=== PATIENT | female | born 1995 | race Caucasian/White ===

== ENCOUNTER → 2021-01-10 09:46 | Outpatient (BNVA) | payer SELFPAY | PROVIDERS: Visit Provider Nurse Practitioner Family | DX: Z20.822 Contact with and (suspected) exposure to COVID-19 (principal); J06.9 Acute upper respiratory infection, unspecified | CPT/HCPCS: 87426 ==

== ENCOUNTER → 2021-08-28 09:29 | Outpatient (BNVA) | payer OTHER, SELFPAY | PROVIDERS: Visit Provider Nurse Practitioner Women's Health | DX: N92.6 Irregular menstruation, unspecified (principal) | CPT/HCPCS: 81025; 84702 ==

== ENCOUNTER → 2021-09-11 15:09 | Outpatient (BNVA) | payer OTHER, SELFPAY | PROVIDERS: Visit Provider Obstetrics & Gynecology | DX: Z36.87 Encounter for antenatal screening for uncertain dates (principal) | CPT/HCPCS: 76801 ==

== ENCOUNTER 2021-09-20 10:04 | Emergency (ER) | payer OTHER, SELFPAY ==
[2021-09-20 10:15] VITALS: BP 108/73; PULSE 94; RESP 16; TEMP 37.2; O2SAT 98; BMI 23.9
--- NOTE | 2021-09-20 10:20 | US_ITS ---
WS: [id number] EARLY OBSTETRICAL ULTRASOUND (<14 WEEKS). HISTORY: 10 weeks , spotting and cramping COMPARISON: 09/11/2021 Single intrauterine gestational sac is identified. Cardiac activity at 171 BPM. [place]-rump length ruddy sures 3.2 cm which corresponds to a gestation of 10w1d. Normal-appearing yolk sac and amnion demonstr ated. Small subchorionic hemorrhage. Subchorionic hemorrhage is noted along the superior gestational sac. Hemorrhage measures 1.9 x 2.4 x 0.5 cm. No free fluid. Normal size ovaries with no mass. Normal appearance of the cervix. Cervix is closed at 4.2 cm in length. US/US OB <= 14 weeks fetus [id number] IMPRESSION: 1. Single intrauterine gestation of 10 weeks 1 day with an EDC of 04/17/2022. A ppropriate growth since the prior ultrasound. 2. Very small subchorionic hemorrhage. 3. Normal cardiac activity. 4. Normal cervix.
--- NOTE | 2021-09-20 10:26 | ED_ITS ---
Documented by User: TRINA Junior 09/20/21 12:56 HPI - General: Chief complaint: Vaginal Bleeding Stated complaint: 10 wks preg, spotting; cramps Time Seen by Provider: 09/20/21 10:19 History of Present Illness: Patient is a G3, P2 26-year-old female and is currently 10 weeks and is having some cramping and spotting. Symptoms started on Thursday. She describes the cramping as very mild and has not taken any Tylenol for the pain. On Thursday the spotting was very light and she described it as pink in color. Her spotting then went away after a day and then yesterday she started having spotting again. She denies any heavy bleeding and describes her bleeding as pink spotting. She is not bleeding through any pads. She contacted her OB doctor today and they sent her here to the ED to get an ultrasound. Associated symptoms: Deny abdominal pain, dysuria, headache(s), nausea or vomiting Review of Systems Const: Denies: fever(s), chills or fatigue Eyes: Denies: change in vision or eye discomfort ENMT: Denies: throat pain, odynophagia, nasal discharge or nasal congestion Card: Denies: chest pain, palpitations, edema, swelling of feet/ankles, dyspnea on exertion or orthopnea Resp: Denies: dyspnea, productive cough or non-productive cough GI: Denies: abdominal pain, nausea, vomiting, diarrhea, constipation or hematochezia : Reports: vaginal bleeding and pelvic pain (Mild cramping); Denies: flank pain, dysuria or hematuria Musc: Denies: neck pain, back pain or extremity swelling Skin/Breast: Denies: rash or new lesions Neuro: Denies: headache(s), numbness in extremities or weakness in extremities PFSH ED PFSH: Medical History No pertinent past medical history neghx: htn,dm,thyroid,dvt/pe PCP: None Surgical History No pertinent past surgical history Family History Mother Hypertension Breast cancer dx age 50's-- BRCA positive but unsure Denies family history of Colon cancer Ovarian cancer Diabetes Heart disease Hypercholesteremia Uterine cancer Thyroid disease Stroke Physical Exam Const: COMMON NORMALS: no acute distress, patient oriented x3, healthy appearing and alert GENERAL APPEARANCE: cooperative and comfortable HENMT: COMMON NORMALS: normocephalic HEAD & SCALP: normocephalic MOUTH: Normal oral and palatal mucosa present THROAT: posterior oropharynx normal and uvula midline Neck/C-Spine: COMMON NORMALS: supple GENERAL: Yes normal visual inspection Resp: COMMON NORMALS: normal respiratory effort, No retractions, No use of accessory muscles and clear to auscultation bilaterally AUSCULTATION: clear to auscultation bilaterally Cardio: COMMON NORMALS: regular rate, regular rhythm, S1 normal heart sound present, S2 normal heart sound present, No gallops present (Cardio), No clicks present (Cardio), No murmurs present (Cardio) and Peripheral pulses 2+ throughout RATE: regular rate RHYTHM: regular rhythm HEART SOUNDS: S1 normal heart sound present and S2 normal heart sound present PERIPHERAL PULSES: Peripheral pulses 2+ throughout GI: COMMON NORMALS: Normal to inspection, nondistended, normoactive bowel sounds present, Soft to palpation, non-tender and no masses PALPATION: Yes Soft to palpation : COMMON NORMALS: Yes no CVA tenderness BLADDER/KIDNEY EXAM: Yes no CVA tenderness Back/Pelvis: COMMON NORMALS: no CVA tenderness Extremity: COMMON NORMALS: normal to inspection and no pedal edema Neuro: COMMON NORMALS: patient oriented x3 and moves all extremities SENSORIUM/ORIENTATION: Yes alert Skin: GENERAL SKIN EXAM: dry skin Course Vital Signs: Vital signs: Vital Signs Temperature 99 F 09/20/21 10:15 Pulse Rate 94 09/20/21 10:15 Respiratory Rate 16 09/20/21 10:15 Blood Pressure 108/73 09/20/21 10:15 Pulse Oximetry 98 09/20/21 10:15 MDM - OB/Uterine Contractions Medical Decision Making Patient is a 26-year-old female that is 10 weeks that comes to the ED with some light spotting and mild cramping. Patient was sent over here by her OB to get an ultrasound. Patient denies any heavy bleeding and has not bleeding through any pads. Vitals are stable. Labs are all unremarkable hCG beta quant is 93,212. Ultrasound showed a single intrauterine at about 10 weeks gestation there was a very small subchorionic hemorrhage noted but other than that everything looked normal. Patient was stable for discharge home and I told her to contact her OB to let her know about ultrasound results. She has diagnosed subchorionic hemorrhage in first trimester. Return to ED precautions given. Follow-up with OB. Patient understood and agreed with plan. Lab Data I reviewed the patient's lab results. : 09/20/21 10:30 09/20/21 10:30 Radiology Impressions Ultrasound 09/20/21 10:20 IMPRESSION: 1. Single intrauterine gestation of 10 weeks 1 day with an EDC of 04/17/2022. Appropriate growth since the prior ultrasound. 2. Very small subchorionic hemorrhage. 3. Normal cardiac activity. 4. Normal cervix. Laboratory Results WBC 10.1 10^3/uL (4.0-10.0) H 09/20/21 10:30 RBC 4.07 10^6/uL (4.1-5.3) L 09/20/21 10:30 Hgb 12.8 g/dL (11.5-15.3) 09/20/21 10:30 Hct 36.0 % (37.0-47.0) L 09/20/21 10:30 MCV 88.5 fl (81-99) 09/20/21 10:30 MCH 31.4 pg (28.0-34.0) 09/20/21 10:30 MCHC 35.6 g/dL (30.0-36.0) 09/20/21 10:30 RDW 12.0 % (12.1-15.1) L 09/20/21 10:30 Plt Count 230 10^3/cmm (130-400) 09/20/21 10:30 MPV 11.1 fL (7.4-10.4) H 09/20/21 10:30 Neut % (Auto) 73.9 % 09/20/21 10:30 Lymph % (Auto) 15.6 % 09/20/21 10:30 [place] % (Auto) 9.0 % 09/20/21 10:30 Eos % (Auto) 0.9 % 09/20/21 10:30 Baso % (Auto) 0.2 % 09/20/21 10:30 Neut # (Auto) 7.50 10^3/uL (1.8-7.7) 09/20/21 10:30 Lymph # (Auto) 1.6 10^3/uL (0.8-4.8) 09/20/21 10:30 [place] # (Auto) 0.9 10^3/uL (0.2-0.9) 09/20/21 10:30 Eos # (Auto) 0.1 10^3/uL (0.0-0.8) 09/20/21 10:30 Baso # (Auto) 0.0 10^3/uL (0.0-0.1) 09/20/21 10:30 Nucleated RBC % (auto) 0 % 09/20/21 10:30 Nucleated RBCs # 0.0 /100WBC 09/20/21 10:30 Sodium 134 mmol/L (136-145) L 09/20/21 10:30 Potassium 3.6 mmol/L (3.5-5.1) 09/20/21 10:30 Chloride 101 mmol/L (98-107) 09/20/21 10:30 Carbon Dioxide 22 mmol/L (22-29) 09/20/21 10:30 Anion Gap 14.6 (5-19) 09/20/21 10:30 BUN 4 mg/dL (6-20) L 09/20/21 10:30 Creatinine 0.3 mg/dL (0.5-0.9) L 09/20/21 10:30 GFR Calculation 264.9 mL/min (90-130) H 09/20/21 10:30 Glucose 84 mg/dL (65-115) 09/20/21 10:30 Calculated Osmolality 274 mOsm/kg (285-295) L 09/20/21 10:30 Calcium 9.0 mg/dL (8.5-10.5) 09/20/21 10:30 Total Bilirubin 0.2 mg/dL (0.15-1.2) 09/20/21 10:30 AST 23 U/L (0-32) 09/20/21 10:30 ALT 54 U/L (0-33) H 09/20/21 10:30 Alkaline Phosphatase 40 IU/L (35-105) 09/20/21 10:30 Total Protein 7.8 g/dL (6.6-8.7) 09/20/21 10:30 Albumin 4.1 g/dL (3.5-5.2) 09/20/21 10:30 Globulin 3.7 g/dL (1.3-4.6) 09/20/21 10:30 Ser , Semi-Qnt 77600.00 mIU/mL 09/20/21 10:30 Urine Color Yellow (Yellow) 09/20/21 10:30 Urine Appearance Clear (CLEAR) 09/20/21 10:30 Urine pH 6.5 (5-7) 09/20/21 10:30 Ur Specific [place] 1.015 (1.005-1.030) 09/20/21 10:30 Urine Protein Neg (Negative) 09/20/21 10:30 Urine Glucose (UA) Norm (Normal) 09/20/21 10:30 Urine Ketones Negative (Negative) 09/20/21 10:30 Urine Blood Neg (Negative) 09/20/21 10:30 Urine Nitrate Negative (Negative) 09/20/21 10:30 Urine Bilirubin Neg (Negative) 09/20/21 10:30 Urine Urobilinogen Norm mg/dL (Negative) 09/20/21 10:30 Ur Leukocyte Esterase Negative (Negative) 09/20/21 10:30 Blood Type O Positive 09/20/21 10:30 Rho(D) Type Positive 09/20/21 10:30 Discharge Plan Discharge Patient Disposition: Home Clinical Impression: Subchorionic hemorrhage in first trimester Qualifiers: Fetus number: single or unspecified fetus Qualified Code(s): O41.8X10 - Other specified disorders of amniotic fluid and membranes, first trimester, not applicable or unspecified Condition: Stable Prescriptions: No Action No Known Home Medications 0RF Discharge Orders: Discharge ED (Routine); Ordered 09/20/21 Ordered By: Gerry Gurrola Discharge Diet: Regular Discharge Activity: Increase activity as tolerated Patient Instructions: (ED), Subchorionic Hemorrhage (ED) Activity Restrictions/Additional Instructions: Contact OB office later today to let them know about your ED visit and ultrasound results. Return to the ER or your medical provider if condition worsens. Please read and understand discharge instructions. Thank you for choosing [facility] for your healthcare needs today. Please realize this is an emergency room and that we are providing you with a medical screening exam and this may not be complete and all inclusive of all the testing and or work up that you may need to determine your ailment or severity of your illness. It is very important that you follow up as instructed or that you return to the Emergency Department should you have concerns or if your condition changes or worsens in any way. Coding Level of Care Code ED Wood Car Builder for Chg Fwd Exam Comprehensive Documented by User: Rolan Hollis DO 09/23/21 09:58 HPI - General: Chief complaint: Vaginal Bleeding Stated complaint: 10 wks preg, spotting; cramps Time Seen by Provider: 09/20/21 10:19 [facility] ED PFSH: Medical History No pertinent past medical history neghx: htn,dm,thyroid,dvt/pe PCP: None Surgical History No pertinent past surgical history Family History Mother Hypertension Breast cancer dx age 50's-- BRCA positive but unsure Denies family history of Colon cancer Ovarian cancer Diabetes Heart disease Hypercholesteremia Uterine cancer Thyroid disease Stroke Course Vital Signs: Vital signs: Vital Signs Temperature 99 F 09/20/21 10:15 Pulse Rate 94 09/20/21 10:15 Respiratory Rate 16 09/20/21 10:15 Blood Pressure 108/73 09/20/21 10:15 Pulse Oximetry 98 09/20/21 10:15 MDM - OB/Uterine Contractions Medical Decision Making Patient is a 26-year-old female that is 10 weeks that comes to the ED w ith some light spotting and mild cramping. Patient was sent over here by her OB to get an ultrasound. Patient denies any heavy bleeding and has not bleeding through any pads. Vitals are stable. Labs are all unremarkable hCG beta quant is 93,212. Ultrasound showed a single intrauterine at about 10 weeks gestation there was a very small subchorionic hemorrhage noted but other than that everything looked normal. Patient was stable for discharge home and I told her to contact her OB to let her know about ultrasound results. She has diagnosed subchorionic hemorrhage in first trimester. Return to ED precautions given. Follow-up with OB. Patient understood and agreed with plan. Chart reviewed and patient discussed with midlevel. Agree with assessment and plan. Lab Data : 09/20/21 10:30 09/20/21 10:30 Radiology Impressions Ultrasound 09/20/21 10:20 IMPRESSION: 1. Single intrauterine gestation of 10 weeks 1 day with an EDC of 04/17/2022. Appropriate growth since the prior ultrasound. 2. Very small subchorionic hemorrhage. 3. Normal cardiac activity. 4. Normal cervix. Laboratory Results WBC 10.1 10^3/uL (4.0-10.0) H 09/20/21 10:30 RBC 4.07 10^6/uL (4.1-5.3) L 09/20/21 10:30 Hgb 12.8 g/dL (11.5-15.3) 09/20/21 10:30 Hct 36.0 % (37.0-47.0) L 09/20/21 10:30 MCV 88.5 fl (81-99) 09/20/21 10:30 MCH 31.4 pg (28.0-34.0) 09/20/21 10:30 MCHC 35.6 g/dL (30.0-36.0) 09/20/21 10:30 RDW 12.0 % (12.1-15.1) L 09/20/21 10:30 Plt Count 230 10^3/cmm (130-400) 09/20/21 10:30 MPV 11.1 fL (7.4-10.4) H 09/20/21 10:30 Neut % (Auto) 73.9 % 09/20/21 10:30 Lymph % (Auto) 15.6 % 09/20/21 10:30 [place] % (Auto) 9.0 % 09/20/21 10:30 Eos % (Auto) 0.9 % 09/20/21 10:30 Baso % (Auto) 0.2 % 09/20/21 10:30 Neut # (Auto) 7.50 10^3/uL (1.8-7.7) 09/20/21 10:30 Lymph # (Auto) 1.6 10^3/uL (0.8-4.8) 09/20/21 10:30 [place] # (Auto) 0.9 10^3/uL (0.2-0.9) 09/20/21 10:30 Eos # (Auto) 0.1 10^3/uL (0.0-0.8) 09/20/21 10:30 Baso # (Auto) 0.0 10^3/uL (0.0-0.1) 09/20/21 10:30 Nucleated RBC % (auto) 0 % 09/20/21 10:30 Nucleated RBCs # 0.0 /100WBC 09/20/21 10:30 Sodium 134 mmol/L (136-145) L 09/20/21 10:30 Potassium 3.6 mmol/L (3.5-5.1) 09/20/21 10:30 Chloride 101 mmol/L (98-107) 09/20/21 10:30 Carbon Dioxide 22 mmol/L (22-29) 09/20/21 10:30 Anion Gap 14.6 (5-19) 09/20/21 10:30 BUN 4 mg/dL (6-20) L 09/20/21 10:30 Creatinine 0.3 mg/dL (0.5-0.9) L 09/20/21 10:30 GFR Calculation 264.9 mL/min (90-130) H 09/20/21 10:30 Glucose 84 mg/dL (65-115) 09/20/21 10:30 Calculated Osmolality 274 mOsm/kg (285-295) L 09/20/21 10:30 Calcium 9.0 mg/dL (8.5-10.5) 09/20/21 10:30 Total Bilirubin 0.2 mg/dL (0.15-1.2) 09/20/21 10:30 AST 23 U/L (0-32) 09/20/21 10:30 ALT 54 U/L (0-33) H 09/20/21 10:30 Alkaline Phosphatase 40 IU/L (35-105) 09/20/21 10:30 Total Protein 7.8 g/dL (6.6-8.7) 09/20/21 10:30 Albumin 4.1 g/dL (3.5-5.2) 09/20/21 10:30 Globulin 3.7 g/dL (1.3-4.6) 09/20/21 10:30 Ser , Semi-Qnt 47981.00 mIU/mL 09/20/21 10:30 Urine Color Yellow (Yellow) 09/20/21 10:30 Urine Appearance Clear (CLEAR) 09/20/21 10:30 Urine pH 6.5 (5-7) 09/20/21 10:30 Ur Specific [place] 1.015 (1.005-1.030) 09/20/21 10:30 Urine Protein Neg (Negative) 09/20/21 10:30 Urine Glucose (UA) Norm (Normal) 09/20/21 10:30 Urine Ketones Negative (Negative) 09/20/21 10:30 Urine Blood Neg (Negative) 09/20/21 10:30 Urine Nitrate Negative (Negative) 09/20/21 10:30 Urine Bilirubin Neg (Negative) 09/20/21 10:30 Urine Urobilinogen Norm mg/dL (Negative) 09/20/21 10:30 Ur Leukocyte Esterase Negative (Negative) 09/20/21 10:30 Blood Type O Positive 09/20/21 10:30 Rho(D) Type Positive 09/20/21 10:30 Discharge Plan Discharge Patient Disposition: Home Clinical Impression: Subchorionic hemorrhage in first trimester Qualifiers: Fetus number: single or unspecified fetus Qualified Code(s): O41.8X10 - Other specified disorders of amniotic fluid and membranes, first trimester, not applicable or unspecified Condition: Stable Prescriptions: No Action No Known Home Medications 0RF Discharge Orders: Discharge ED (Routine); Ordered 09/20/21 Ordered By: Gerry Gurrola Discharge Diet: Regular Discharge Activity: Increase activity as tolerated Patient Instructions: (ED), Subchorionic Hemorrhage (ED) Activity Restrictions/Additional Instructions: Contact OB office later today to let them know about your ED visit and ultrasound results. Return to the ER or your medical provider if condition worsens. Please read and understand discharge instructions. Thank you for choosing [facility] for your healthcare needs today. Please realize this is an emergency room and that we are providing you with a medical screening exam and this may not be complete and all inclusive of all the testing and or work up that you may need to determine your ailment or severity of your illness. It is very important that you follow up as instructed or that you return to the Emergency Department should you have concerns or if your condition changes or worsens in any way. Coding Level of Care Code ED Wood Car Builder for Liliane Alvarez Exam Comprehensive
[2021-09-20 10:39] LABS: Add Urine Microscopic? NO; Charge for UA Resulting for Rev
[2021-09-20 10:41] LABS: Basophils % 0.2 %; Eosinophils # 0.1 10^3/uL (0.0-0.8); Eosinophils % 0.9 %; Hemoglobin 12.8 g/dL (11.5-15.3); Lymphocytes # 1.6 10^3/uL (0.8-4.8); Lymphocytes % 15.6 %; Mean Corpuscular HGB Conc 35.6 g/dL (30.0-36.0); Mean Corpuscular Hemoglobin 31.4 pg (28.0-34.0); Mean Corpuscular Volume 88.5 fl (81-99); Mean Platelet Volume 11.1 fL (7.4-10.4); Monocytes # 0.9 10^3/uL (0.2-0.9); Neutrophils % 73.9 %; Nucleated Red Blood Cells % 0 %; Platelet Count 230 10^3/cmm (130-400); Red Blood Count 4.07 10^6/uL (4.1-5.3); White Blood Count 10.1 10^3/uL (4.0-10.0)
[2021-09-20 10:44] LABS: Bilirubin Urine Neg (Negative); Blood Urine Neg (Negative); Glucose Urine UA Norm (Normal); Ketones Urine Negative (Negative); Leukocyte Esterase Urine Negative (Negative); Nitrate Urine Negative (Negative); Protein Urine Neg (Negative); Specific Gravity, Urine 1.015 (1.005-1.030); Urine Appearance Clear (CLEAR); Urine Color Yellow (Yellow); Urobilinogen Urine Norm (Negative); pH Urine 6.5 (5-7)
[2021-09-20 11:11] LABS: Alanine Aminotransferase 54 U/L (0-33); Albumin Level 4.1 g/dL (3.5-5.2); Alkaline Phosphatase 40 IU/L (35-105); Anion Gap 14.6 (5-19); Aspartate Amino Transferase 23 U/L (0-32); Blood Urea Nitrogen 4 mg/dL (6-20); Carbon Dioxide 22 mmol/L (22-29); Chloride 101 mmol/L (98-107); Globulin 3.7 g/dL (1.3-4.6); Glomerular Filtration Rate 264.9 mL/min (90-130); Glucose 84 mg/dL (65-115); Osmolality Calculated 274 mOsm/kg (285-295); Potassium 3.6 mmol/L (3.5-5.1); Sodium 134 mmol/L (136-145); Total Bilirubin 0.2 mg/dL (0.15-1.2); Total Protein 7.8 g/dL (6.6-8.7)
== END 2021-09-20 12:08 | disposition home or self-care (01) ==
PROVIDERS: Emergency Provider Physician Assistant
DX: O41.8X10 Other specified disorders of amniotic fluid and membranes, first trimester, not applicable or unspecified (principal); Z3A.10 10 weeks gestation of pregnancy
CPT/HCPCS: 76801; 80053; 81003; 84702; 85025; 86900; 99283

== ENCOUNTER → 2021-09-25 14:00 | Outpatient (BNVA) | payer OTHER, SELFPAY | PROVIDERS: Visit Provider Obstetrics & Gynecology | DX: Z34.80 Encounter for supervision of other normal pregnancy, unspecified trimester (principal) | CPT/HCPCS: 80307; 84315; 86592; 86762; 86803; 86850; 86870; 87086; 87340 ==

== ENCOUNTER → 2021-10-02 13:47 | Outpatient (BNVA) | payer OTHER, SELFPAY | PROVIDERS: Visit Provider Obstetrics & Gynecology | DX: Z34.90 Encounter for supervision of normal pregnancy, unspecified, unspecified trimester (principal); R87.612 Low grade squamous intraepithelial lesion on cytologic smear of cervix (LGSIL) | CPT/HCPCS: 84315; 87491; 87591; 87624 ==

== ENCOUNTER 2021-11-27 08:22 | Outpatient (CLI) | payer OTHER, SELFPAY ==
--- NOTE | 2021-11-27 08:30 | US_ITS ---
WS: [id number] ULTRASOUND OB COMPLETE TECHNIQUE: Complete ultrasound. CLINICAL INFORMATION: Z34.90 - Encounter for supervision of normal , u... COMPARISON: Ultrasound September 20, 2021 FINDINGS: Cervix is long and closed measuring 4.5 cm. Single interuterine gestation is identified with transverse presentation. Placenta is posterior and low-lying. Placenta grade 0. MONICA 9.3 cm low normal at the 5th percentile cardiac activity: 171 BPM. AGA: 19w4d PERRY by ultrasound: 04/19/2022 Estimated weight: 311 g BDP: 4.2 cm = 18w6d HC: 16.9 cm = 19w4d AC: 14.6 cm = 20w0d FEMUR LENGTH: 3.1 cm = 19w5d Anatomic survey: Anatomic survey is normal. Normal stomach. Kidneys and bladder are normal. Normal 3 vessel cord. Norm al 3 vessel cord insertion. Normal 4 chamber heart. Normal spine. Intracranial contents are normal. N ormal posterior fossa and cisterna magna. US/US OB >= 14 weeks fetus [id number] IMPRESSION: 1. Single intrauterine with visualized cardiac activity. AGA 19w4d w ith PERRY 04/19/2022. 2. Placenta is posterior and low-lying, post void. Recommend 3rd trimester fol low-up. 3. anatomic survey is normal. 4. MONICA 9.3 cm at the lower end of the range corresponding to the 5th percentil e for gestational age
== END 2021-11-27 08:23 | disposition home or self-care (01) ==
PROVIDERS: Visit Provider Obstetrics & Gynecology
DX: Z34.92 Encounter for supervision of normal pregnancy, unspecified, second trimester (principal); Z3A.19 19 weeks gestation of pregnancy
CPT/HCPCS: 76805

== ENCOUNTER → 2021-12-23 08:17 | Outpatient (BNVA) | payer OTHER, SELFPAY | PROVIDERS: Visit Provider Obstetrics & Gynecology | DX: O44.40 Low lying placenta NOS or without hemorrhage, unspecified trimester (principal); Z3A.00 Weeks of gestation of pregnancy not specified | CPT/HCPCS: 76817; 84315 ==

== ENCOUNTER 2022-03-27 16:00 | Outpatient (CLI) | payer OTHER, SELFPAY ==
[2022-03-27 16:05] VITALS: RESP 16
[2022-03-27 16:09] VITALS: BP 121/70; PULSE 73
[2022-03-27 16:25] VITALS: BP 119/71; PULSE 72
== END 2022-03-27 16:32 | disposition home or self-care (01) ==
LOC: OPOB 16:03 → OBGYN 16:04
PROVIDERS: Visit Provider Family Medicine
DX: O24.419 Gestational diabetes mellitus in pregnancy, unspecified control (principal); Z3A.00 Weeks of gestation of pregnancy not specified
CPT/HCPCS: 59025

== ENCOUNTER 2022-03-31 10:35 | Outpatient (CLI) | payer OTHER, SELFPAY ==
[2022-03-31 10:30] VITALS: BMI 27.3
[2022-03-31 10:42] VITALS: BP 117/66; PULSE 90
--- NOTE | 2022-03-31 10:45 | US_ITS ---
WS: [id number] BIOPHYSICAL PROFILE AMNIOTIC FLUID HISTORY: GDM COMPARISON: 12/23/2021 Cardiac activity: 144 bpm. Cervix: Limited visualization. Placenta: Posterior, no previa or abruption. Placenta grade: 2 Parameters are as follows: Breathin Movement: 2 Tone: 2 Fluid volume: 2 Amniotic fluid index: 17.4 cm. Deep vertical pocket 5.5 cm. US/US OB BPP wo NST [id number] IMPRESSION: 1. Biophysical profile score: 8/8. 2. Normal amniotic fluid.
[2022-03-31 10:57] VITALS: BP 110/60; PULSE 76
== END 2022-03-31 11:34 | disposition home or self-care (01) ==
LOC: OPOB 10:36 → OBGYN 10:39
PROVIDERS: Visit Provider Family Medicine
DX: O24.419 Gestational diabetes mellitus in pregnancy, unspecified control (principal); Z3A.00 Weeks of gestation of pregnancy not specified
CPT/HCPCS: 59025; 76819

== ENCOUNTER 2022-04-03 15:01 | Outpatient (CLI) | payer OTHER, SELFPAY ==
[2022-04-03 15:07] VITALS: BP 113/57; PULSE 86
[2022-04-03 15:17] VITALS: BP 113/57; PULSE 86; RESP 16; BMI 27.4
[2022-04-03 15:23] VITALS: BP 110/56; PULSE 77
[2022-04-03 15:37] VITALS: BP 115/58; PULSE 79
== END 2022-04-03 15:43 | disposition home or self-care (01) ==
LOC: OPOB 15:02 → OBGYN 15:03
PROVIDERS: Visit Provider Family Medicine
DX: O24.419 Gestational diabetes mellitus in pregnancy, unspecified control (principal); Z3A.00 Weeks of gestation of pregnancy not specified
CPT/HCPCS: 59025; 99211

== ENCOUNTER 2022-04-07 11:34 | Outpatient (CLI) | payer OTHER, SELFPAY ==
[2022-04-07 11:43] VITALS: BP 118/57; PULSE 85
[2022-04-07 11:44] VITALS: BP 118/57; PULSE 85; RESP 16; BMI 27.4
== END 2022-04-07 12:18 | disposition home or self-care (01) ==
LOC: OPOB 11:34 → OBGYN 11:35
PROVIDERS: Visit Provider Family Medicine
DX: O24.419 Gestational diabetes mellitus in pregnancy, unspecified control (principal); Z3A.00 Weeks of gestation of pregnancy not specified
CPT/HCPCS: 59025; 99211

== ENCOUNTER 2022-04-10 06:26 | Inpatient (IN) | payer OTHER, SELFPAY ==
[2022-04-09 18:50] VITALS: BMI 27.4
[2022-04-09 19:10] VITALS: RESP 16; TEMP 36.9
[2022-04-09 19:57] LABS: Basophils % 0.1 %; Eosinophils # 0.1 10^3/uL (0.0-0.8); Eosinophils % 0.7 %; Hematocrit 33.4 % (37.0-47.0); Hemoglobin 11.2 g/dL (11.5-15.3); Lymphocytes # 1.6 10^3/uL (0.8-4.8); Lymphocytes % 19.2 %; Mean Corpuscular HGB Conc 33.5 g/dL (30.0-36.0); Mean Corpuscular Hemoglobin 29.4 pg (28.0-34.0); Mean Corpuscular Volume 87.7 fl (81-99); Mean Platelet Volume 11.8 fL (7.4-10.4); Monocytes # 0.7 10^3/uL (0.2-0.9); Neutrophils % 71.6 %; Nucleated Red Blood Cells % 0 %; Platelet Count 165 10^3/cmm (130-400); Red Blood Count 3.81 10^6/uL (4.1-5.3); Red Cell Distribution Width 12.3 % (12.1-15.1); White Blood Count 8.5 10^3/uL (4.0-10.0)
[2022-04-09 19:59] VITALS: BP 116/66; PULSE 87
[2022-04-09] MEDS: miSOPROStol 100 mcg tablet 25 MCG VAGINAL (20:11)
[2022-04-09 20:53] LABS: Glucose Point of Care 145 mg/dL (70-110)
[2022-04-09 21:42] VITALS: BP 126/72; PULSE 92
[2022-04-09 23:08] VITALS: BP 124/75; PULSE 83
[2022-04-10] VITALS (50 sets, daily range): BP systolic 99–146; BP diastolic 56–87; PULSE 60–97; RESP 15–17; TEMP 36.3–37; O2SAT 91–100
[2022-04-10] MEDS: miSOPROStol 100 mcg tablet 25 MCG VAGINAL ×2 (00:13→04:31)
[2022-04-10] MEDS: acetaminophen 325 mg Tablet 650 MG PO (06:16)
[2022-04-10] MEDS: lactated ringers 1,000 ML 999 ML IV ×2 (06:32→07:30)
--- NOTE | 2022-04-10 06:58 | PM.OPHPUD ---
Labor & Delivery H&P Update Date of Procedure: April 10, 2022 Date H&P Performed: 04/08/22 Admission Diagnosis: 26-year-old 3 para 2-0-0-2 at 39 weeks 0 days presenting for induction due to gestational diabetes. Primary indication for procedure: Well-controlled gestational diabetes Planned procedure: Spontaneous vaginal delivery Other information: Patient is a pleasant 26-year-old female presenting for induction due to gestational diabetes. Her has been remarkable for having gestational diabetes has been diet controlled. She has done a good job of modifying her diet. Her blood sugars have consistently been below 120. evaluations otherwise have been within normal limits. Her labs have been notable for having a blood type of O+ antibody screen negative. As previously mentioned she failed her 3-hour glucose screen. She is GBS negative. Rubella immune. The remainder of her infectious disease profile was within normal limits. She was noted to have an abnormal Pap her first trimester while receiving care from Dr. Mcnair. Related Problem List Diagnoses (1) 39 weeks gestation of : I anticipate a routine induction. We will check at the patient's blood sugars 4 times a day. She been placed on Cytotec x3. She has had spontaneous rupture of membranes. She desires an epidural. (2) Gestational diabetes mellitus: (3) Anxiety and depression: A&P Assessment and plan (1) 39 weeks gestation of : Status: Acute (2) Gestational diabetes mellitus: Status: Acute (3) Anxiety and depression: Status: Acute
[2022-04-10] MEDS: ondansetron 2 mg/ML SDV 2 mL 4 MG IVP (07:01)
--- NOTE | 2022-04-10 07:39 | ANES.PREANE2 ---
Pre-Anesthetic Assessment Height/Weight: Height 1.6 m Weight 70.307 kg Temp Pulse Resp BP Pulse Ox O2 Del Method 97.3 F L 76 16 112/66 100 04/10/22 07:32 04/10/22 07:36 04/09/22 19:10 04/10/22 07:36 04/10/22 07:34 04/09/22 18:50 epidural Familial anesthetic complications: none Was Beta Marvin taken within 24 hours: N/A Was Clonidine taken within 24 hours: N/A Last intake: ice chips Social No alcohol and No tobacco Airway Mallampati: Class I Dentition: chipped Anesthetic Plan ASA status: 2 Anesthesia: Regional (specify below) Medications/Allergies Home Medications Medication Instructions Recorded Confirmed Last Taken Type prenat.vits,royce,jjp-iedc-uoiti 1 tab PO DAILY 09/25/21 04/09/22 04/09/22 13:00 History Lexapro PO 03/31/22 04/09/22 13:00 History Allergies Allergy/AdvReac Type Severity Reaction Status Date / Time No Known Allergies Allergy Verified 12/23/21 09:42 Current Medications Generic Name Dose Route Start Last Admin Trade Name Freq PRN Reason Stop Dose Admin Acetaminophen 650 mg 04/09/22 19:10 04/10/22 06:16 Acetaminophen 325 Mg Tablet PO 650 mg Q6H PRN Administration Mild pain or temp > 100.4 Dextrose/Lactated Ringer's 1,000 mls @ 125 mls/hr 04/09/22 19:15 04/09/22 21:21 Dextrose 5%-Lactated Ringers IV Not Given .Q8H KEYLA Lactated Ringer's 1,000 mls @ 999 mls/hr 04/10/22 06:22 04/10/22 07:30 Lactated Ringers IV 999 mls/hr .Q1H1M PRN Administration See label comments Ondansetron HCl 4 mg 04/09/22 19:10 04/10/22 07:01 Ondansetron 2 Mg/Ml Sdv 2 Ml IVP 4 mg Q4H PRN Administration NAUSEA AND VOMITING PFSH Anesthesia Medical History No pertinent past medical history Denies diabetes, asthma, hypertension, seizures, DVT/PE PCP: None Surgical History No pertinent past surgical history Family History Mother Hypertension Breast cancer dx age 50's-- BRCA positive but unsure Denies family history of Colon cancer Ovarian cancer Diabetes Heart disease Hypercholesteremia Uterine cancer Thyroid disease Stroke Female Reproductive History Date of last menstrual period: 07/10/21 : 3 Data Anesthesia 04/09/22 19:30 Short CBC 04/09/22 Range/Units 19:30 WBC 8.5 (4.0-10.0) 10^3/uL Hgb 11.2 L (11.5-15.3) g/dL Hct 33.4 L (37.0-47.0) % MCV 87.7 (81-99) fl Plt Count 165 (130-400) 10^3/cmm Neut % (Auto) 71.6 % Neut # (Auto) 6.10 (1.8-7.7) 10^3/uL Cardiac Studies: No Data to Display Anesthesia Procedures Epidural Time Out Performed: Yes Consents Signed: Procedure Consent Consent: requested by attending/covering physician, from patient, from other, risks and benefits reviewed and patient agrees to proceed Lumbar Level: L3-L4 Epidural position: sitting Epidural procedure: sterile prep of area, 1% lidocaine to numb the area, 18 g needle, negative for paresthesia passed, neg for paresthesia, test dose given, 1.5% xylocaine 1:200k epi (5 cc), 0.2% Ropivacaine bolus ml (5 cc), placed PCEA, no systemic response, sterile dressing applied, L.U.D. no apparent complications and 0.2% Ropiavacaine @ mls/hr (3) Additional Comments: BRODIE at 5 cm, threaded to 11 cm
[2022-04-10 07:55] LABS: Glucose Point of Care 70 mg/dL (70-110)
[2022-04-10] MEDS: oxytocin 30 UNIT/500 ML BAG 600 UNIT IV (08:52)
--- NOTE | 2022-04-10 09:02 | PM.DELIVERY ---
Delivery Note: Date of delivery: April 10, 2022 Pre-delivery diagnoses: 1. 26-year-old 3 para 2-0-0-2 with gestational diabetes at 39 weeks estimated gestational age Post-delivery diagnoses: Same Procedure: Spontaneous vaginal delivery Delivering Physician: Jd Rivero Estimated blood loss (mL): 150 Pre-Delivery Course: The patient presented to the hospital she was placed on Cytotec 25 mcg per vagina x3. An epidural was placed. Spontaneous rupture of membranes occurred. She progressed to complete without difficulty. heart tones were category 1 throughout. Delivery: DELIVERY: The patient progressed to complete without difficulty. She delivered a female with a weight of 7 pounds 1 ounce with Apgars of 9, 10. The baby was delivered from the LUNA position. The baby's mouth and nose were suctioned at the site of the perineum. The baby was then completely delivered and placed on the mother's abdomen. The cord was then clamped and cut. There was no nuchal cord. There was no meconium. The placenta and 3 vessel cord were delivered intact shortly thereafter. The perineum and vaginal vault were carefully examined. No lacerations were noted. Both the mother and the baby were in stable condition. Post-Delivery Status: Stable History History History 3 Term 2 0 Miscarriages/Ectopic 0 Living Children 2 A&P Assessment and plan (1) Gestational diabetes mellitus: (2) 39 weeks gestation of : (3) Spontaneous vaginal delivery: Coding Level of Care Code Acute Beaming Machine Operator for Chg Fwd Diagnoses Gestational diabetes mellitus O24.419 39 weeks gestation of Z3A.39 Spontaneous vaginal delivery O80
[2022-04-10] MEDS: ibuprofen 800 mg tablet PO ×3 (10:14→21:29)
[2022-04-10] MEDS: prenatal vitamin Capsule 1 CAP PO (10:14)
[2022-04-10] MEDS: lanolin oint 7 gm 1 APPLIC TOPICAL (10:14)
[2022-04-10] MEDS: benzocaine-menthol 78 gm Canister 1 SPRAY TOPICAL (10:14)
[2022-04-10] MEDS: docusate sodium 100 mg Capsule PO ×2 (10:14→18:11)
--- NOTE | 2022-04-10 13:03 | PC.NURSE ---
Pt up to bathroom without assistance. Void and sary care performed. Pad and underwear changed. Pt put on own clothes. Then ambulated to OB9. Oriented to room/call light. Discussed proud parent pack and feeding log.
[2022-04-10 21:49] LABS: Hematocrit 31.4 % (37.0-47.0); Hemoglobin 10.3 g/dL (11.5-15.3); Mean Corpuscular HGB Conc 32.8 g/dL (30.0-36.0); Mean Corpuscular Volume 88.5 fl (81-99); Mean Platelet Volume 11.3 fL (7.4-10.4); Platelet Count 145 10^3/cmm (130-400); Red Blood Count 3.55 10^6/uL (4.1-5.3); Red Cell Distribution Width 12.3 % (12.1-15.1); White Blood Count 10.8 10^3/uL (4.0-10.0)
[2022-04-11 02:45] VITALS: BP 132/80; PULSE 73; RESP 16
[2022-04-11 04:45] VITALS: BP 110/74; PULSE 80; RESP 16; TEMP 36.7
--- NOTE | 2022-04-11 08:51 | ANE.PACU2 ---
Inpatient post-anesthesia follow up: Airway intact: Yes Vital signs: Temperature 98.1 F Pulse Rate 80 Respiratory Rate 16 Blood Pressure 110/74 Pulse Oximetry 98 Oxygen Delivery Me thod Room Air Oxygen Flow Rate Fraction of Inspir ed Oxygen Hydration adequate: Yes Nausea and vomiting: No Pain level: 1 Mental status: Baseline
--- NOTE | 2022-04-11 09:18 | P.DS_ITS ---
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 Her blood sugars been well controlled. There have been no concerns during her hospital stay. Status: Resolved (2) 39 weeks gestation of : Status: Resolved (3) Spontaneous vaginal delivery: Status: Resolved Reason for Visit Reason for Visit: induction Hospital Course Hospital Course The patient presented for induction due to being 39 weeks and being gestational diabetic. Please refer to delivery note for her hospital course prior to her vaginal delivery. Her course was unremarkable. Her bleeding was within normal limits. Her blood sugars were unremarkable overall. Her pain was well controlled. She breast-fed well. There were no concerns. Information Peripartum Data: Infant Delivery Method: Vaginal Physical Exam Narrative: The patient is alert. She appears comfortable. Her heart has a regular rate and rhythm with no murmurs appreciated. Lungs are clear to auscultation bilaterally. Her fundus is firm and below the umbilicus. History History History 3 Term 2 0 Miscarriages/Ectopic 0 Living Children 2 Discharge Data Studies Completed and Pending Laboratory Results WBC 10.8 10^3/uL (4.0-10.0) H 04/10/22 21:00 RBC 3.55 10^6/uL (4.1-5.3) L 04/10/22 21:00 Hgb 10.3 g/dL (11.5-15.3) L 04/10/22 21:00 Hct 31.4 % (37.0-47.0) L 04/10/22 21:00 MCV 88.5 fl (81-99) 04/10/22 21:00 MCH 29.0 pg (28.0-34.0) 04/10/22 21:00 MCHC 32.8 g/dL (30.0-36.0) 04/10/22 21:00 RDW 12.3 % (12.1-15.1) 04/10/22 21:00 Plt Count 145 10^3/cmm (130-400) 04/10/22 21:00 MPV 11.3 fL (7.4-10.4) H 04/10/22 21:00 Neut % (Auto) 71.6 % 04/09/22 19:30 Lymph % (Auto) 19.2 % 04/09/22 19:30 [place] % (Auto) 8.0 % 04/09/22 19:30 Eos % (Auto) 0.7 % 04/09/22 19:30 Baso % (Auto) 0.1 % 04/09/22 19:30 Neut # (Auto) 6.10 10^3/uL (1.8-7.7) 04/09/22 19:30 Lymph # (Auto) 1.6 10^3/uL (0.8-4.8) 04/09/22 19:30 [place] # (Auto) 0.7 10^3/uL (0.2-0.9) 04/09/22 19:30 Eos # (Auto) 0.1 10^3/uL (0.0-0.8) 04/09/22 19:30 Baso # (Auto) 0.0 10^3/uL (0.0-0.1) 04/09/22 19:30 Nucleated RBC % (auto) 0 % 04/09/22 19:30 Nucleated RBCs # 0.0 /100WBC 04/09/22 19:30 POC Glucose 70 mg/dL (70-110) 04/10/22 07:52 Vitals Last Vital Signs Temp 98.1 F 04/11/22 04:45 Pulse 80 04/11/22 04:45 Resp 16 04/11/22 04:45 BP 110/74 04/11/22 04:45 Pulse Ox 98 04/10/22 14:00 O2 Del Method 04/10/22 18:40 Discharge Plan Discharge Patient Disposition: Home Condition: Stable Prescriptions: New ibuprofen 800 mg Tablet 800 mg PO TID Qty: 45 0RF Continued prenat.vits,royce,[id number] Tablet 1 tab PO DAILY Lexapro capsule PO Discharge Orders: Discharge Order (Routine); Ordered 04/11/22 Ordered By: Jd Rivero Referrals: Jd Rivero MD [Physician] - 05/21/22 10:45 am (* Your 6 week follow up appointment is with Dr. 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
[2022-04-11] MEDS: docusate sodium 100 mg Capsule PO (09:41)
[2022-04-11] MEDS: prenatal vitamin Capsule 1 CAP PO (09:41)
[2022-04-11] MEDS: ibuprofen 800 mg tablet PO (09:41)
[2022-04-11] MEDS: escitalopram 10 mg Tablet PO (09:41)
[2022-04-11 09:42] VITALS: BP 100/57; PULSE 98; RESP 16; TEMP 36.8; O2SAT 99
[2022-04-11 10:40] VITALS: BP 102/64; PULSE 112; RESP 15; TEMP 36.7; O2SAT 98
[2022-04-11 10:50] VITALS: BP 102/64; PULSE 112; RESP 15; TEMP 36.7; O2SAT 98
== END 2022-04-11 10:50 | disposition home or self-care (01) | DRG 807 ==
LOC: OPOB 06:27 → OBGYN 06:27
PROVIDERS: Admitting Provider Family Medicine; Visit Provider Family Medicine
DX: O24.420 Gestational diabetes mellitus in childbirth, diet controlled (principal); Z37.0 Single live birth; O99.344 Other mental disorders complicating childbirth; Z3A.39 39 weeks gestation of pregnancy
CPT/HCPCS: 12345; 36415; 36416; 51702; 59025; 59409; 82962; 85025; 85027; 96374; J2405; J2590; J2795; J7120

== ENCOUNTER 2024-06-17 16:19 | Observation (INO) | payer OTHER, SELFPAY ==
--- NOTE | 2024-06-14 09:27 | ANES.PREANE2 ---
Pre-Anesthetic Assessment Height/Weight: Height 1.6 m Operation Date: 06/17/24 13:00 Proposed Procedures p Laparoscopic Salpingectomy(Bilateral) - Adan Ashley MD s Anterior Repair Anterior Colporrhaphy(Not Applicable) - Adan Ashley MD s Posterior Repair Posterior Colporrhaphy(Not Applicable) - Adan Ashley MD s Sling Single Incision Sling(Not Applicable) - Adan Ashley MD Familial anesthetic complications: None Social No alcohol and No tobacco Exam alert, oriented x 3, clear to auscultation bilaterally and regular rate & rhythm Airway Dentition: full Anesthetic Plan ASA status: 1 Anesthesia: General Risk of > 500 ml blood loss (7ml/kg in children): No Medications/Allergies Home Medications ?Medication ?Instructions ?Recorded ?Confirmed ?Last Taken ?Type Lexapro PO 03/31/22 06/13/24 06/14/24 History ibuprofen 800 mg tablet 800 mg PO TID #45 tabs 04/11/22 06/14/24 Unknown Rx Allergies Allergy/AdvReac Type Severity Reaction Status Date / Time No Known Allergies Allergy Verified 06/14/24 09:04 [facility] Anesthesia Medical History No pertinent past medical history Denies diabetes, asthma, hypertension, seizures, DVT/PE PCP: None Surgical History No pertinent past surgical history Family History Mother Hypertension Breast cancer dx age 50's-- BRCA positive but unsure Denies family history of Colon cancer Ovarian cancer Diabetes Heart disease Hypercholesteremia Uterine cancer Thyroid disease Stroke Social History Smoking and tobacco/nicotine status: never used tobacco/nicotine Data Anesthesia Cardiac Studies: No Data to Display
[2024-06-14 09:29] LABS: Add Urine Microscopic? NO
[2024-06-14 09:44] LABS: Basophils % 0.3 %; Eosinophils # 0.1 10^3/uL (0.0-0.8); Eosinophils % 1.2 %; Hematocrit 38.8 % (36-47); Lymphocytes # 2.2 10^3/uL (0.8-4.8); Lymphocytes % 30.5 %; Mean Corpuscular Hemoglobin 31.2 pg (27-33); Mean Corpuscular Volume 91.7 fl (85-98); Mean Platelet Volume 9.8 fL (7.4-10.4); Monocytes # 0.5 10^3/uL (0.2-0.9); Monocytes % 7.1 %; Neutrophils # 4.42 10^3/uL (1.8-7.7); Neutrophils % 60.6 %; Nucleated Red Blood Cells % 0 %; Platelet Count 322 10^3/cmm (157-399); Red Blood Count 4.23 10^6/uL (3.85-5.65); Red Cell Distribution Width 11.9 % (12.1-15.1)
[2024-06-14 09:55] LABS: Alanine Aminotransferase 42 U/L (0-33); Albumin Level 4.4 g/dL (3.5-5.2); Alkaline Phosphatase 46 U/L (35-105); Aspartate Amino Transferase 27 U/L (0-32); Chloride 99 mmol/L (98-107); Sodium 135 mmol/L (136-145)
[2024-06-14 10:04] LABS: Bilirubin Urine Negative (Negative); Blood Urine Negative (Negative); Glucose Urine UA Negative (Normal); Ketones Urine Negative (Negative); Leukocyte Esterase Urine Negative (Negative); Nitrate Urine Negative (Negative); Protein Urine Negative (Negative); Specific Gravity, Urine 1.018 (1.005-1.030); Urine Appearance Clear (CLEAR); Urine Color Yellow (Yellow); pH Urine 7.5 (5-7)
[2024-06-14 10:21] LABS: Blood Urea Nitrogen 9 mg/dL (6-20); Calcium 8.9 mg/dL (8.5-10.5); Carbon Dioxide 24 mmol/L (22-29); Globulin 2.9 g/dL (1.3-4.6); Glomerular Filtration Rate 144.9 mL/min (90-130); Glucose 93 mg/dL (65-115); Osmolality Calculated 278 mOsm/kg (285-295); Total Bilirubin 0.2 mg/dL (0.15-1.2); Total Protein 7.3 g/dL (6.6-8.7)
[2024-06-14 10:59] LABS: Charge for UA Resulting for Rev
[2024-06-17] VITALS (22 sets, daily range): BP systolic 80–128; BP diastolic 39–78; PULSE 53–130; RESP 12–22; TEMP 36.1–36.9; O2SAT 94–100; BMI 26.5
[2024-06-17] MEDS: sodium chloride 0.9% 1,000 ML 30 ML IV (10:57)
--- NOTE | 2024-06-17 10:58 | P.ANESUD_ITS ---
Pre-Anesthetic Update Pre-Anesthetic Assessment: Date of Surgery/Procedure: 06/17/24 Preop June gnosis: desire permanent sterilization, cystocele, stress incontinence, recotcele Proposed Procedure: Operation Date: 06/17/24 12:00 Proposed Procedures p Laparoscopic Salpingectomy(Bilateral) - Adan Ashley MD s Anterior Repair Anterior Colporrhaphy(Not Applicable) - Adan Ashley MD s Posterior Repair Posterior Colporrhaphy(Not Applicable) - Adan Ashley MD s Sling Single Incision Sling(Not Applicable) - Adan Ashley MD Changes from Pre-Anesthetic Assessment: No changes since patient was seen earlier this week, type and screen pending. NPO since yesterday Plan for [employer] Cardiac Studies: No Data to Display
[2024-06-17] MEDS: scopolamine 1 mg PATCH 1 PATCH TRANSDERMA (11:03)
[2024-06-17] MEDS: metroNIDAZOLE IV 500 MG/100 ML PREMIX 100 MG IV (11:33)
[2024-06-17 11:40] LABS: OR HCG Qualitative Urine Negative (Negative)
--- NOTE | 2024-06-17 12:10 | W.PM.OPSUD ---
Surgery/Procedure H&P Update DATE OF PROCEDURE: June 17, 2024 DATE H&P PERFORMED: 06/13/24 H&P UPDATE INFORMATION: I have reviewed H&P completed within last 30 days, I have examined patient prior to procedure and No changes to prior documentation PREOP DIAGNOSIS: desire permanent sterilization, cystocele, stress incontinence, recotcele PLANNED PROCEDURE: Operation Date: 06/17/24 12:00 Proposed Procedures p Laparoscopic Salpingectomy(Bilateral) - Adan Ashley MD s Anterior Repair Anterior Colporrhaphy(Not Applicable) - Adan Ashley MD s Posterior Repair Posterior Colporrhaphy(Not Applicable) - Adan Ashley MD s Sling Single Incision Sling(Not Applicable) - Adan Ashley MD
[2024-06-17] MEDS: ceFAZolin 2,000 mg SDV 2000 MG IVP (12:14)
[2024-06-17] MEDS: lidocaine-epi 2% PF 1:200,000 20 mL SDV INJECTION (13:05)
[2024-06-17] MEDS: BUPivacaine 0.5% INJ 30 mL INJECTION (13:06)
--- NOTE | 2024-06-17 14:38 | P.BOP_ITS ---
Date of Procedure: 06/17/24 Surgeon: Adan Ashley MD Screw Machine Tool Setter(s): Procedure(s) performed: Laparoscopic bilateral salpingectomy, anterior colporrhaphy augmented with allograft, midurethral sling, posterior colporrhaphy Findings of the procedure(s): Cystocele, rectocele Estimated blood loss: 100 mL Specimen(s) removed: Left and right fallopian tube Post-operative diagnosis: Status post laparoscopic bilateral salpingectomy and A&P colporrhaphy, mid urethral sling
--- NOTE | 2024-06-17 14:40 | P.OP_ITS ---
Operative Report Date of procedure: June 17, 2024 Pre-op diagnosis: Cystocele, Stress urinary incontinence Rectocele Desire permanent sterilization Post-op diagnosis: same Procedure done: Laparoscopic bilateral salpingectomy Anterior colporrhaphy augmented with allograft Mid urethral sling Posterior colporrhaphy Cystoscopy Implants: Coloplast dermis allograft Coloplast Altis mid urethral sling Specimens removed/disposition: Left the right fallopian tube Surgeon: Adan Ashley MD Estimated blood loss (mL): 100 IV fluids (mL): 1,300 Urine output (mL): 200 Procedure: After informed consent, the patient was taken to the operating room where general anesthesia was administered. She was placed in the dorsal lithotomy position and prepped and draped in sterile fashion. Pre-Procedure Time-Out verifying the correct patient identity, correct procedure verified with consent, correct site and side, correct patient position, availability of correct implants and any special equipment or requirements was performed and acknowledge by the OR team. The patient was examined under anesthesia and found to have a normal uterus with normal adnexa. A weighted speculum was placed in the vagina, and the anterior lip of cervix was grasped with the single toothed tenaculum. A uterine manipulator was advanced into the endocervical canal and uterus. The tenaculum was removed after uterine manipulator was secured. The speculum was removed from the vagina. An intraumbilical incision was made with a scalpel. While tenting up on the abdomen, a Verres needle was admitted into the intra-abdominal cavity. A saline drop test was performed and noted to be within normal limits. Pneumoperitoneum was attained with 4 liters of carbon dioxide. The Verres needle was removed. A 5 mm Opitc view trocar and sleeve were admitted into the abdomen and laparoscopic confirmation of location was achieved. A second incision was made 3 cm above the symphysis pubis, and a 5 mm trocar sleeves were admitted into the abdomen under direct laparoscopic visualization without complication. A survey revealed normal abdominal anatomy with the exception of string adhesion to the right lower anterior abdominal wall. A 5 mm blunt probe was advanced through the second trocar sleeve, and light manipulation of ovaries and uterus to assess the posterior aspects was performed. The pelvic survey shows normal uterus, left and right adnexa. The patient was placed into Trendelenburg position. The fallopian tubes were inspected bilaterally and the fimbriated ends of the fallopian tubes were visualized bilaterally. Attention was then directed to the right side. The fallopian tube and mesosalpinx were grasped and the underlying mesosalpinx was cauterized and cut using the Ligasure device. Serial cauterization and cutting was used to separate the fallopian tube from the underlying mesosalpinx until it could be amputated cutting it approximated 2 cm from the cornua. Attention was then turned to the contralateral fallopian tube, which was removed in similar fashion. Both specimens were removed through the trocar and sent to pathology. The instruments were removed. The suprapubic trocar port was removed under direct visualization insuring good hemostasis. The carbon dioxide was allowed to escape from the abdomen. The intraumbilical trocar sleeve was withdrawn under visualization with laparoscope in the sleeve to insure hemostasis. The skin incisions were closed with 3-O Monocryl subcuticular stich and Dermabond. The instruments were removed from the vagina, and excellent hemostasis was noted. Then proceeded to perform the vaginal procedures. The anterior vaginal mucosa beneath the midurethra was infiltrated with 2% lidocaine with epinephrine. A vertical midline incision was made beneath the midurethra, nearly 1.5 cm length. Careful submucosal dissection was performed bilaterally up to the interior portion of the inferior pubic ramus. The in sertion of adductor longus tendon on the patient?s pubic ramus was identified as reference land jeanine. Palpated the notch along the internal edge of ischiopubic ramus where the adductor longus tendon and the inferior pubic ramus meet. The Altis single incision sling (SIS) was selected. Then the needle of the SIS inserted aiming at the location of this notch. One of the integrated self- fixating tips place onto the needle by sliding it over the end of the needle. The needle/sling assembly was inserted toward the location of identified reference notch making sure that the flat of the handle is perpendicular to the desired path. The needle was tracked along the posterior surface of the ischiopubic ramus until the midline jeanine on the mesh is approximately at the midline position under the urethra. The needle was removed and the same was repeated on the contralateral side until the appropriate sling tension under the urethra was achieved ensuring that the mesh lays flat. The needle was removed and vaginal incision was closed in a running interlocking fashion with 2-0 Vicryl. The vaginal mucosa was then injected in the midline with 2% lidocaine with epinephrine. The vaginal mucosa was scored in the midline with the Bovie approximately 1 cm medial to the urethral meatus to 1 cm distal to the cervix. This vaginal mucosa was then undermined and then incised in the midline with the Metzenbaum scissors. The lateral aspects of the vaginal mucosa were then grasped with the Allis clamps and the vaginal mucosa was then dissected off the underlying fascia with the Metzenbaum scissors. Again, there was noted to be quite a bit of oozing at the incision, which was controlled with cautery. After adequate dissection was performed, bilaterally. A coloplast Dermis allograft was modified at time of application to fit spacea, 3 x 3 cm piece. The Coloplast allograft was placed in front of cystocele ready to be implanted facing the vagina mucosa. Suture is placed at distal end of graft and placed towards vaginal cuff. Final suture is placed on proximal portion of the graft to complete the placement overlying the bladder. Then Interrupted vertical mattress sutures of 0 Vicryl were used to elevate the cystocele superiorly. The excessive vaginal mucosa was then trimmed with the Metzenbaum scissors and the vaginal mucosa was then reapproximated in the running interlocking fashion with 2-0 Vicryl. Posterior colpoperineorrhaphy was performed with Allis clamps to grasp hymenal caruncles to allow 2-3 fingerbreadths caliber; A dilute 2% lidocaine with epinephrine solution was infiltrated under the posterior vaginal mucosa midline and into the perineal body. An inverted triangle incision was cut in the perineum. The posterior vaginal wall was opened vertically and midline up to the apex of the rectocele. The cut edges were held and splayed laterally with a series of Allis clamps. The open vaginal mucosa was then dissected laterally with a combination of sharp and blunt dissection, exposing the perirectal fascia. The perirectal fascia was then reapproximated with interrupted #2-0 Vicryl sutures to draw the lateral folds together and tuck the rectocele back. Deep interrupted sutures of #0 Vicryl were used to reapproximate the fibers of the levator ani muscles. The excess vaginal mucosa was trimmed. The posterior vaginal wall was closed with a running locked #0 Vicryl to the hymenal tags. The superficial perineal muscles were closed with running unlocked #0 Vicryl and the perineal skin was closed with running subcuticular #2-0 Vicryl. Then the Alvarez catheter was removed and cystoscope was inserted. The bladder was filled with sterile water. Complete evaluation of the bladder mucosa was performed noting no lacerations, dimpling, tears, bleeding of the mucosa or musc ular layers. Both ureteral orifices were identified. Prompt excretion of urine from both ureteral orifices was noted. Cystoscope was withdrawn. The Alvarez catheter was replaced. Excellent hemostasis was obtained. A vaginal pack is placed overnight as postoperative support for the vaginal tissues after graft placement and closure of vaginal incisions. Sponge, lap, needle, and instrument counts were correct times three. The patient was taken to the recovery room, awake and in stable condition.
--- NOTE | 2024-06-17 14:58 | SUR.PHASEI ---
14:49 RECEIVED PT FROM OR STAFF. VENTILATING WELL WITH GOOD CHEST RISE AND FALL. NSR ON MONITOR. MACIAS PATENT AND DRAINING.
--- NOTE | 2024-06-17 15:06 | SUR.PHASEI ---
15:00 WARM BLANKETS APPLIED.
--- NOTE | 2024-06-17 15:24 | SUR.PHASEI ---
15:15 ALERT AND ORIENTED.RESPONDS TO VERBAL. ORAL AIRWAY DC'ED. PT VENTILATING WELL.
--- NOTE | 2024-06-17 15:35 | SUR.PHASEI ---
15:30 TOLERATED ICE CHIPS.
--- NOTE | 2024-06-17 16:30 | ANE.PACU2 ---
Inpatient post-anesthesia follow up: Airway intact: Yes Vital signs: Temperature 98.1 F Pulse Rate 92 Respiratory Rate 16 Blood Pressure 97/58 Pulse Oximetry 97 Oxygen Delivery Me thod Room Air Oxygen Flow Rate 8 Fraction of Inspir ed Oxygen Hydration adequate: Yes Nausea and vomiting: No Pain level: 2 Mental status: Baseline
[2024-06-17] MEDS: ketorolac 30 mg/mL INJ IVP (22:04)
[2024-06-17] MEDS: simethicone 80 mg Chew PO (23:48)
[2024-06-18 00:19] VITALS: BP 99/63; PULSE 82; RESP 16; TEMP 36.9; O2SAT 98
[2024-06-18 05:08] VITALS: BP 100/65; PULSE 79; RESP 16; TEMP 36.6; O2SAT 98
[2024-06-18] MEDS: ketorolac 30 mg/mL INJ IVP (05:09)
[2024-06-18 05:13] LABS: Hematocrit 34.5 % (36-47); Mean Corpuscular HGB Conc 33.6 g/dL (30-55); Mean Corpuscular Hemoglobin 30.9 pg (27-33); Mean Platelet Volume 10.1 fL (7.4-10.4); Platelet Count 274 10^3/cmm (157-399); Red Blood Count 3.75 10^6/uL (3.85-5.65); Red Cell Distribution Width 11.9 % (12.1-15.1); White Blood Count 15.08 10^3/uL (3.29-11.43)
--- NOTE | 2024-06-18 07:00 | PC.NURSE ---
RN removed packing at 0510am
--- NOTE | 2024-06-18 09:13 | PC.NURSE ---
PVR 100 at this time
--- NOTE | 2024-06-18 10:22 | P.DS_ITS ---
Discharge Providers [employer] Date of Admission: 06/17/24 16:19 Date of Discharge: 06/18/24 Attending Provider at Admission: dAan Ashley MD Attending Provider at Discharge: Adan Ashley MD Primary Care Provider: Jd Rivero MD Hospital Course Hospital Course Ms. Choi is a 28 year old female , with history of cystocele, rectocele, stress urinary incontinence and desire permanent sterilization. Admitted for planned laparoscopic bilateral salpingectomy, anterior colporrhaphy augmented with allograft, mid urethral sling, and posterior colporrhaphy. The procedures were performed without complication. Overnight observation was uneventful. She is afebrile and hemodynamically stable postoperative day 1. PVR within normal limits. Tolerating diet well. Ambulating without difficulty. She was counseled regarding pelvic rest for 6 weeks (no sex, no tampons, no vaginal douches). Return to the emergency room if any fever, increased bleeding or pain. Physical Exam Narrative: GA: Alert and oriented ?3. HEENT: WNL. Heart: Regular rate and rhythm. Lungs: Clear to auscultation bilaterally. Abdomen: Bowel sounds present, nontender, minimal tenderness, incision clean and dry, no redness, pain or edema. 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 Extremities: No edema, no cyanosis, no calves pain. Urinary Catheter Management: Alvarez: Cath Placed During This Visit: yes, but has since been removed by the nurse Reason for Continuing Indwelling Catheter: Decision to DC Catheter Urinary Catheter Date of Insertion: 06/17/24 Urinary Catheter Time of Insertion: 12:40 Date Urinary Catheter Removed: 06/18/24 Time Urinary Catheter Discontinued: 05:09 History History History 3 Term 2 0 Miscarriages/Ectopic 0 Living Children 2 Discharge Data Studies Completed and Pending Pending at discharge Category Date Time Status Pathology: Surgical [PTH] Routine Pth 06/17/24 13:14 Received Laboratory Results WBC 15.08 10^3/uL (3.29-11.43) H 06/18/24 05:02 RBC 3.75 10^6/uL (3.85-5.65) L 06/18/24 05:02 Hgb 11.60 g/dL (11.27-16.99) 06/18/24 05:02 Hct 34.5 % (36-47) L 06/18/24 05:02 MCV 92.0 fl (85-98) 06/18/24 05:02 MCH 30.9 pg (27-33) 06/18/24 05:02 MCHC 33.6 g/dL (30-55) 06/18/24 05:02 RDW 11.9 % (12.1-15.1) L 06/18/24 05:02 Plt Count 274 10^3/cmm (157-399) 06/18/24 05:02 MPV 10.1 fL (7.4-10.4) 06/18/24 05:02 Neut % (Auto) 60.6 % 06/14/24 09:20 Lymph % (Auto) 30.5 % 06/14/24 09:20 [place] % (Auto) 7.1 % 06/14/24 09:20 Eos % (Auto) 1.2 % 06/14/24 09:20 Baso % (Auto) 0.3 % 06/14/24 09:20 Neut # (Auto) 4.42 10^3/uL (1.8-7.7) 06/14/24 09:20 Lymph # (Auto) 2.2 10^3/uL (0.8-4.8) 06/14/24 09:20 [place] # (Auto) 0.5 10^3/uL (0.2-0.9) 06/14/24 09:20 Eos # (Auto) 0.1 10^3/uL (0.0-0.8) 06/14/24 09:20 Baso # (Auto) 0.0 10^3/uL (0.0-0.1) 06/14/24 09:20 Nucleated RBC % (auto) 0 % 06/14/24 09:20 Nucleated RBCs # 0.0 /100WBC 06/14/24 09:20 Sodium 135 mmol/L (136-145) L 06/14/24 09:20 Potassium 4.0 mmol/L (3.5-5.1) 06/14/24 09:20 Chloride 99 mmol/L (98-107) 06/14/24 09:20 Carbon Dioxide 24 mmol/L (22-29) 06/14/24 09:20 Anion Gap 16.0 (5-19) 06/14/24 09:20 BUN 9 mg/dL (6-20) 06/14/24 09:20 Creatinine 0.5 mg/dL (0.5-0.9) 06/14/24 09:20 GFR Calculation 144.9 mL/min (90-130) H 06/14/24 09:20 Glucose 93 mg/dL (65-115) 06/14/24 09:20 Calculated Osmolality 278 mOsm/kg (285-295) L 06/14/24 09:20 Calcium 8.9 mg/dL (8.5-10.5) 06/14/24 09:20 Total Bilirubin 0.2 mg/dL (0.15-1.2) 06/14/24 09:20 AST 27 U/L (0-32) 06/14/24 09:20 ALT 42 U/L (0-33) H 06/14/24 09:20 Alkaline Phosphatase 46 U/L (35-105) 06/14/24 09:20 Total Protein 7.3 g/dL (6.6-8.7) 06/14/24 09:20 Albumin 4.4 g/dL (3.5-5.2) 06/14/24 09:20 Globulin 2.9 g/dL (1.3-4.6) 06/14/24 09:20 Urine Color Yellow (Yellow) 06/14/24 09:20 Urine Appearance Clear (CLEAR) 06/14/24 09:20 Urine pH 7.5 (5-7) 06/14/24 09:20 Ur Specific [place] 1.018 (1.005-1.030) 06/14/24 09:20 Urine Protein Negative (Negative) 06/14/24 09:20 Urine Glucose (UA) Negative (Normal) 06/14/24 09:20 Urine Ketones Negative (Negative) 06/14/24 09:20 Urine Blood Negative (Negative) 06/14/24 09:20 Urine Nitrate Negative (Negative) 06/14/24 09:20 Urine Bilirubin Negative (Negative) 06/14/24 09:20 Urine Urobilinogen 1.0 mg/dL (Negative) 06/14/24 09:20 Ur Leukocyte Esterase Negative (Negative) 06/14/24 09:20 Amorphous Sediment Not Reportable 06/14/24 09:20 Urine HCG, Qual Negative (Negative) 06/17/24 11:38 Blood Type O Positive 06/17/24 10:48 Rho(D) Type Rh positive 06/17/24 10:48 Antibody Screen Negative 06/17/24 10:48 Vitals Last Vital Signs Temp 97.8 F 06/18/24 05:08 Pulse 79 06/18/24 05:08 Resp 16 06/18/24 05:08 BP 100/65 06/18/24 05:08 Pulse Ox 98 06/18/24 05:08 O2 Del Method Room Air 06/18/24 05:08 O2 Flow Rate 8 06/17/24 15:20 Results Labs OB ([facility]): Blood Type O Positive 06/17/24 Antibody Screen Negative 06/17/24 Hct 34.5 % (36-47) L 06/18/24 Hgb 11.60 g/dL (11.27-16.99) 06/18/24 Rho(D) Type Rh positive 06/17/24 Plt Count 274 10^3/cmm (157-399) 06/18/24 Discharge Plan Discharge Patient Disposition: Home Condition: Stable Prescriptions: New hydrocodone-acetaminophen 5-325 mg tablet 1 tab PO Q4H PRN (Reason: pain) Qty: 20 0RF acetaminophen 325 mg capsule 325 mg PO Q4H PRN (Reason: Postoperative fever or pain) Qty: 60 0RF docusate sodium [Colace] 100 mg capsule 100 mg PO BID Qty: 60 0RF ibuprofen 800 mg tablet 800 mg PO TID PRN (Reason: pain) Qty: 180 3RF Continued Lexapro capsule 20 mg PO DAILY ibuprofen 800 mg Tablet 800 mg PO TID Qty: 45 0RF Discharge Orders: Discharge Order (Routine); Ordered 06/18/24 Ordered By: Adan Ashley Referrals: Adan Ashley MD [Physician] - 07/25/24 10:45 am (* Your 6 week post op is with Dr. Ashley on 07/25/2024 at 10:45am) Tanja Byrne APN, WHNP [Nurse Practitioner] - 07/01/24 8:00 am (* Your 2 week post op appointment is with Tanja Byrne on 07/01/2024 at 8:00am) Discharge Diet: Soft Mechanical Discharge Activity: Limit activity as instructed Patient Instructions: Acute Wound Care (DC), Salpingectomy (DC), Bladder Sling for Women (DC), Anterior Vaginal Repair (DC), Posterior Vaginal Repair (DC), Opioid Safety, Post Anesthesia Care Activity Restrictions/Additional Instructions: 1. Please call [facility] on next working day to make your post-operative appointment in 2 weeks. 2. Please stay home until you come back to the clinic on first post- hospatilization check up. 3. Please follow instructions on your medications CAREFULLY. 4. If you have abdominal incision, do not cover it unless dressing is necessary because of drainage. OK to shower, but avoid bath. Leave steri-strips until they fall off. If they are still on one week after surgery, you may remove the m. 5. If you had vaginal surgery or vaginal repair, Dr. Ashley may instruct you to take SITZ bath. 6. Yellow, blood tinged odorous vaginal discharge is usually normal after hysterectomy or vaginal surgeries. 7. No SEXUAL INTERCOURSE, tampons, or douches until you are completely released from the post-operative care. 8. Avoid constipation by eating right and maybe using some Metamucil or Milk of Magnesia. 9. All prescription refills are given during the working hours. Please do no wait till it runs out. Call the clinic at [phone] before your medication runs out. The clinic will get in touch with your doctor to prescribe medications if necessary. 10. Please remain within 40 mile radius from our hospital because emergencies do happen now and then during the post-operative period. 11. If you have stairs at home, take one step at a time slowly and minimize the number of trips. It helps to stay in one floor for the next few days. No lifting except what you can lift by one hand until you are released from the post-operative care. 12. Driving is discouraged until you are well healed. It may be 3-4 weeks before you feel strong enough to drive. You should be able to turn and look through the rear window without pain and you should be able to push the brake pedal very hard without pain before you drive. No fast rules, but SAFETY should be your primary concern. DO NOT drive if you are on sedating medications such as narcotics. 13. Call the clinic (during working hours) to make urgent appointment or go to the Emergency room, if any of the following occurs: i. Vaginal bleeding becomes heavy, more than a period. ii. Incision becomes red and sore, or drains pus. iii. Your TEMPERATURE is over 100.4F or you have chill. iv. IV site becomes red and swollen (a little ``knot?? is usually OK) v. Persistent nausea and vomiting vi. Persistent constipation or diarrhea vii. Rash or allergic reaction to medications. Discharge Attestations [employer] Time Spent in Discharge Care*: greater than 30 min Coding Level of Care Code Acute Code for Chg Fwd
[2024-06-18] MEDS: docusate sodium 100 mg Capsule PO (10:24)
[2024-06-18] MEDS: ibuprofen 800 mg tablet PO (10:24)
[2024-06-18] MEDS: simethicone 80 mg Chew PO (10:25)
[2024-06-18 10:56] VITALS: BP 110/71; PULSE 84; RESP 18; TEMP 36.7; O2SAT 99
== END 2024-06-18 11:00 | disposition home or self-care (01) ==
LOC: OBGYN 21:17
PROVIDERS: Admitting Provider Obstetrics & Gynecology; PCP Family Medicine; Visit Provider Obstetrics & Gynecology
PROC: (CPT 58661; principal; 2024-06-17 12:00)
PROC: 0JQC0ZZ Repair Pelvic Region Subcutaneous Tissue and Fascia, Open Approach (ICD-10-PCS; CPT 57240; 2024-06-17 12:00)
PROC: (CPT 57250; 2024-06-17 12:00)
PROC: (CPT 57288; 2024-06-17 12:00)
PROC: 0TJB8ZZ Inspection of Bladder, Via Natural or Artificial Opening Endoscopic (ICD-10-PCS; CPT 52000; 2024-06-17 12:00)
DX: N81.10 Cystocele, unspecified (principal); Z30.2 Encounter for sterilization; N81.6 Rectocele; N39.3 Stress incontinence (female) (male)
CPT/HCPCS: 57288; 58661; 57260; 36415; 80053; 81003; 81025; 85025; 85027; 86850; 86900; 88302; A4216; C1713; C1762; G0378; J0131; J0690; J1100; J1171; J1885; J2250; J2405; J2704; J3010; J3490; J7030